=== PATIENT | female | born 1990 | race Hispanic/Latino ===

== ENCOUNTER 2023-10-25 18:00 | Emergency (ER) | payer SELFPAY ==
[2023-10-25 18:17] VITALS: BP 131/65
[2023-10-25 18:17] LABS: % Basophils 0.6 % (0-2); % Eosinophils 1.4 % (0-6); % Immature Granulocytes 0.4 % (0-0.5); % Lymphocytes 34.2 % (20.5-51.1); % Neutrophils 57.4 % (42.2-75.2); Absolute Basophils 0.1 10^3/uL (0-0.2); Absolute Eosinophils 0.2 10^3/uL (0-0.7); Absolute Immature Granulocytes 0.1 10^3/uL (0-0.05); Absolute Lymphocytes 4.9 10^3/uL (1.2-3.4); Absolute Monocytes 0.9 10^3/uL (0.1-0.6); Absolute Neutrophils 8.2 10^3/uL (1.4-6.5); Hematocrit 36.2 % (37.0-47.0); Hemoglobin 12.6 g/dL (12.0-16.0); Mean Corp Hgb Conc. 34.8 g/dL (33.0-37.0); Mean Corpuscular Hgb 28.4 pg (27.0-31.0); Mean Corpuscular Volume 81.5 fL (81.0-99.0); Mean Platelet Volume 9.5 fL (7.4-10.4); Nucleated Red Blood Cells % 0 %; Platelet Count 332 10^3/uL (130-400); Red Blood Cell Count 4.44 10^6/uL (4.20-5.40); Red Cell Dist. Width 12.7 % (11.5-14.5); White Blood Cell Count 14.2 10^3/uL (4.8-10.8)
--- NOTE | 2023-10-25 18:18 | ED.GENMED ---
History of Present Illness
General
Chief Complaint: Unresponsive
Source: family
Exam Limitations: clinical condition
Time Seen by Provider: 10/25/23 18:05
Nursing documentation reviewed up to this point in time: agreed with
History of Present Illness
History of Present Illness:
This a 33-year-old female brought in by her mother after patient went unresponsive approximately 40 minutes prior to arrival. Using Vietnamese translation services, mom stated that patient was eating 2 oranges and 2 bananas when she felt unresponsive
and went unconscious. Patient did tell mom that her throat seemed tight prior to her passing out. Mom did not notice any seizure-like activity. Mom reports no head injury. Patient has eaten oranges and bananas in the past and has no known
allergies. Mom states that she has no medical problems, no surgeries. Mom does not feel that patient is . 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 There is no unusual chemical exposure today. Mom was with
her for much of the time, and mom has no symptoms. Upon arrival, patient's blood sugar was within the normal range. She was slightly tachycardic.
Vital signs are stable. Patient not hypoxic
Nursing note reviewed. I agree with nursing documentation up to this point in time.
Home Meds and allergies reviewed.
NUMBER AND COMPLEXITY OF PROBLEMS ADDRESSED AT THE ENCOUNTER
� Chronic conditions affecting care: None
� Acute Exacerbation and/or Progression of Chronic Illness: None
� Differential Diagnosis includes: Seizure, hypoglycemia, intracerebral hemorrhage, chemical exposure, carbon monoxide exposure, choking, syncope, heat exhaustion, dehydration
AMOUNT AND/OR COMPLEXITY OF DATA TO BE REVIEWED AND ANALYZED
I performed an independent evaluation of the following and my interpretation is:
EKG:
CT:COMPARISON: None.
FINDINGS:
The ventricles are normal in size, configuration, and position for age. There is no intra- or extra-axial mass, hemorrhage, or fluid collection. No areas of abnormal mass effect or attenuation are noted. Visualized paranasal sinuses are free of
mucosal disease. No depressed calvarial fracture.
Vertebral height and alignment is preserved. No acute fracture or subluxation. The atlanto occipital joint is maintained. The odontoid and lateral masses are intact. No significant degenerative changes of the cervical spine. The prevertebral soft
tissues are within normal limits.
The adjacent structures appear intact. The visualized soft tissues of the neck are normal.
IMPRESSION:
1. No acute intracranial abnormality noted.
2. No acute fracture or subluxation of the cervical spine.
X-rays:
Ultrasound:
Laboratory Studies:
Other:
Review of other/old records: No old records.
Clinical information was obtained by an independent historian:
Prescriptions/Medications Considered but not given:
Further testing considered but not performed:
RISK OF COMPLICATIONS AND/OR MORBIDITY OR MORTALITY OF PATIENT MANAGEMENT
Social determinants of health affecting care: Good Social Support
Discussion with other providers:
Escalation of care including admission/observation vs risk of discharge considered:
CRITICAL CARE NOTE:
Critical care statement: A total of 45 minutes of critical care time was provided for this patient. This time is separate from time utilized to perform the aforementioned documented procedures. Aggregate critical care time includes only time
during which I was engaged in work directly related to the patient's care, as described above, whether at the bedside or elsewhere in the Emergency Department.
Total Time (exclusive of procedures):45
Update:
10/25/2023 1823 PM: [id number] arrived and was able to state that patient's sister, his , had similar episodes while she was . He does not feel the patient is .
Phy Exam
Physical Exam
Physical Exam:
Initial physical exam patient was somewhat unresponsive to voice. She was responsive to painful stimuli. Heart was tachycardic. Sinus tach on the monitor. Moves all 4 extremities. Skin was warm and dry. She appeared to have hydrated. Lungs
are clear to auscultation bilaterally. Abdomen soft nondistended good bowel sounds x 4 quadrants. No vertical or horizontal nystagmus.
Repeat physical examination after CT scan patient was awake alert and oriented x 3. Smiling and in no acute distress. Heart is regular rate rhythm. Lungs are clear to auscultation bilaterally. Affect was normal. She had no respiratory distress.
Oropharynx was clear. Pupils equal round reactive to light and accommodation. No vertical or horizontal nystagmus. Patient in no acute distress.
Course
Orders/Labs/Results
Orders:
Orders
10/25/23 18:05
CT Cervical Spine W/o Iv Contr Urgent
Comment:
Reason For Exam: fall
10/25/23 18:06
Electrocardiogram (*1) Stat
Reason for Study: Other
Other Reason for Exam: overdose
CT Head W/o Iv Contrast Urgent
Comment:
Reason For Exam: unresponsive
Bedside Glucose- Treatment ONCE
Cardiac Monitoring- Treatment ONCE
EKG- Treatment ONCE
IV Insert/Care/Rem.- Treatment PRN
0.9% Sodium Chloride 1000 ml [Nss] 1,000 ml IV BOLUS
Test Result ONCE
10/25/23 18:11
Acetaminophen Urgent
Alcohol Urgent
Complete Blood Count/With Diff Urgent
Comprehensive Metabolic Panel Urgent
HCG, Serum Qualitative Screen Urgent
PTT Urgent
Prothrombin Time Urgent
Salicylate Urgent
10/25/23 19:43
Urinalysis Reflex To Culture Urgent
Date Specimen was Collected: 10/25/23
Time Specimen was Collected: 19:40
Urine Drug Abuse Screen Urgent
Date Specimen was Collected: 10/25/23
Time Specimen was Collected: 19:40
Urine Microscopic Reflex Cult Urgent
Abnormal Lab Results
10/25/23 10/25/23
18:11 19:43
WBC 14.2 H 10^3/uL
(4.8-10.8)
Hct 36.2 L %
(37.0-47.0)
Abs Immat Gran (auto) 0.1 H 10^3/uL
(0-0.05)
Absolute Neuts (auto) 8.2 H 10^3/uL
(1.4-6.5)
Absolute Lymphs (auto) 4.9 H 10^3/uL
(1.2-3.4)
Absolute Monos (auto) 0.9 H 10^3/uL
(0.1-0.6)
Glucose 141 H mg/dl
(70-99)
Leukocyte Esterase Rfl Trace A
(Negative)
Urine Bacteria (Reflex) Few A
(Negative)
Salicylates < 1.0 L mg/dl
(2.0-20.0)
Acetaminophen < 10 L ug/ml
(10-30)
U Marijuana (THC) Screen Positive H
(Negative)
10/25/23 18:11
10/25/23 18:11
Vital Signs
Initial and Last Documented VS:
Initial Vital Signs
Temp Pulse Resp BP Pulse Ox
98.6 F 125 14 131/65 100
10/25/23 18:17 10/25/23 18:17 10/25/23 18:17 10/25/23 18:17 10/25/23 18:17
Last Documented Vital Signs
Temp Pulse Resp BP Pulse Ox
98.6 F 89 16 107/58 98
10/25/23 18:17 10/25/23 20:15 10/25/23 20:15 10/25/23 20:00 10/25/23 20:15
*Radiology
Radiology exam reviewed: radiology read reviewed
*Pulse Oximetry
Patient hypoxic: no
*Critical Care Note
Total Time (30-74mins, 75-104mins- exclusive of procedures): 45
Update Note
Update Note:
Patient states that she is feeling 100%. She wishes to be discharged she does not want any further testing or imaging at this time. Family is in agreement. They state that this has happened to her before. She has no respiratory distress.
Patient being discharged in improved condition. Encouraged to follow-up
ED Attending Note
-
Portions of this chart may have been created with voice recognition software.� Occasional wrong word or��sound alike� substitutions may have occurred due to the inherent limitations of voice recognition software.
Discharge Plan
Departure
Patient Disposition: Home (Routine Discharge)
Date of Disposition: 10/25/23
Time of Disposition: 20:23
Patient with high blood pressure during this ER visit?: No
Condition: Good
Discharge Problem:
Syncope and collapse
Instructions: Syncope (Fainting) (DC)
Prescriptions:
No Action
No Current Medications
0
Referrals:
[facility] [Provider Group] - Call in 1-3 days for appt
[facility] [Outside]
[facility] [Outside]
NONE,* [Family Provider] -
Activity Restrictions/Additional Instructions:
It was a pleasure meeting you and taking part in your care. We hope for your continued healing and wellness.
Please read discharge instructions in their entirety. However, they are for general education and may not describe your exact diagnosis at discharge. Information on your ER visit and medical conditions were discussed with you along with appropriate
follow up information...
If indicated, please take your medications as instructed and indicated on discharge paperwork.
Please schedule a follow up appointment as directed. Call to schedule an appointment
Please return to the emergency department with ANY change in, persisting, or worsening of symptoms. If any of your symptoms do not improve, or persist, or become more severe within 6-12 hours, please return to the emergency department for further
care.
Please return to the emergency department if you develop a headache, neck pain/stiffness, fever greater than 100.4F, chest pain, shortness of breath, persistent nausea, vomiting, slurred speech, difficulty walking, numbness/tingling, weakness, signs
of infection or any other symptoms that are worrisome to you.
If you have any questions or concerns please do not hesitate to call the Hospital at
Interventions
Interventions:
*Risk Screen - Suicide Last Done: 10/25/23 18:29
*General Assessment Last Done: 10/25/23 18:17
*Neglect/Abuse Screening Last Done: 10/25/23 18:29
ED- Fall Risk Assessment Last Done: 10/25/23 20:34
*ED COVID-19 Vaccine History Last Done: 10/25/23 18:17
*Nursing Disposition Last Done: 10/25/23 20:34
ED- Neurological Assessment Last Done: 10/25/23 18:29
Discharge Date and Time
Discharge Date/Time: 10/25/23 20:34
Print Language: [id number]
[2023-10-25 18:28] LABS: INR 1.03; PT 13.3 Sec (11.4-14.6)
[2023-10-25 18:29] LABS: APTT 27.7 Sec (23.4-35.0)
[2023-10-25] MEDS: NSS 1000 IV (18:31)
[2023-10-25 18:33] LABS: ALT (SGPT) 18 U/L (0-35); AST (SGOT) 23 U/L (14-36); Acetaminophen < 10 ug/ml (10-30); Albumin 4.6 g/dl (3.5-5.0); Alkaline Phosphatase 77 U/L (38-126); Blood Urea Nitrogen 11 mg/dl (7-17); Calcium 9.9 mg/dl (8.4-10.2); Carbon Dioxide 24 mmol/L (22-30); Chloride 103 mmol/L (98-107); Glucose 141 mg/dl (70-99); Potassium 3.7 mmol/L (3.5-5.1); Salicylate < 1.0 mg/dl (2.0-20.0); Sodium 135 mmol/L (135-145); Total Bilirubin 0.5 mg/dl (0.2-1.3); Total Protein 7.4 g/dl (6.3-8.2); eGFR > 60.00
[2023-10-25 18:39] LABS: Alcohol None Detected
[2023-10-25 18:48] LABS: HCG, Serum Qualitative Screen Negative
[2023-10-25 18:56] VITALS: BP 139/88
[2023-10-25 19:00] VITALS: BP 135/73
[2023-10-25 19:41] VITALS: BP 119/54
[2023-10-25 19:49] LABS: Urine Albumin Negative (Neg - Trace); Urine Bilirubin Negative (Negative); Urine Character Clear (Clear); Urine Color Yellow; Urine Glucose Negative (Negative); Urine Ketone Negative (Negative); Urine Leukocyte Trace (Negative); Urine Nitrite Negative (Negative); Urine Occult Blood Negative (Negative); Urine Urobilinogen Negative (Neg - 1+); Urine pH 6.5 (5.0-9.0)
[2023-10-25 20:00] VITALS: BP 107/58
[2023-10-25 20:05] LABS: Amphetamines Negative (Negative); Barbiturates Negative (Negative); Benzodiazepines Negative (Negative); Buprenorphine Negative (Negative); Cocaine Negative (Negative)
[2023-10-25 20:06] LABS: Marijuana Positive (Negative); Methadone Negative (Negative); Methamphetamines Negative (Negative); Opiates Negative (Negative); Phencyclidine Negative (Negative); Tricyclic Antidepressants Negative (Negative); Urine Squamous Cell 16-20 /LPF (Few)
[2023-10-25 20:07] LABS: Urine Bacteria Few (Negative); Urine Mucus Many; Urine Red Blood Cell 0-2 /HPF (0-2); Urine White Cell 0-2 /HPF (0-5)
[2023-10-26 15:00] LABS: Glucose - Point of Care 155 mg/dl (70-99)
== END 2023-10-25 20:34 | disposition home or self-care (01) ==
LOC: EMR 18:00
PROVIDERS: EMERGENCY PHYSICIAN Student in an Organized Health Care Education/Training Program
DX: R55 Syncope and collapse (principal); R00.0 Tachycardia, unspecified; Y93.E9 Activity, other interior property and clothing maintenance; Y92.89 Other specified places as the place of occurrence of the external cause; Y99.0 Civilian activity done for income or pay
CPT/HCPCS: 99291; 96360; 70450; 72125; 80053; 80143; 80179; 80306; 81003; 81015; 82077; 82962; 84703; 85025; 85610; 85730; 93005